=== PATIENT | female | born 1990 | race Two or more races ===

== ENCOUNTER 2022-06-14 10:04 | Day surgery (SDC) | payer OTHER ==
[~2022-06-14] VITALS: Ht 160 cm; Wt 74.8 kg
[2022-06-14] MEDS ORDERED: COLACE100 MG PO (14:34)
[2022-06-14] MEDS ORDERED: NEURONTIN300 MG PO (14:34)
[2022-06-14] MEDS ORDERED: PERCOCET 5-3251 EACH PO (14:34)
== END 2022-06-14 18:25 | disposition home or self-care (01) ==
LOC: CIR.AMB 10:04
PROVIDERS: ATTEND Surgery
DX: K60.3 Anal fistula (principal); K62.89 Other specified diseases of anus and rectum; Z20.822 Contact with and (suspected) exposure to COVID-19